=== PATIENT | male | born 1995 | race African-American/Black ===

== ENCOUNTER 2019-09-01 14:41 | Emergency (ER) | payer MEDICAID, OTHER ==
[~2019-09-01] VITALS: Ht 172.7 cm; Wt 67.1 kg
[2019-09-01] MEDS ORDERED: IV NORMAL SALINE 1000 ML BAG IV ONE (15:30)
--- NOTE | 2019-09-01 15:39 | NUR ---
Patient is resting comfortably in bed with eyes closed, NAD noted.
[2019-09-01 15:43] LABS: BASOPHILS # (AUTO) 0.1 K/uL (0.0-8.0); BASOPHILS % (AUTO) 0.8 % (0.0-2.0); EOSINOPHILS # (AUTO) 0.1 K/uL (0.0-0.7); EOSINOPHILS % (AUTO) 1.7 % (0.0-7.0); HEMATOCRIT 43.7 % (36.7-47.1); HEMOGLOBIN 14.7 g/dL (12.5-16.3); LYMPHOCYTES % (AUTO) 38.5 % (20.5-51.5); MEAN CORPUSCULAR HEMOGLOBIN 31.2 uug (23.8-33.4); MEAN CORPUSCULAR HGB CONC 34 g/dL (32.5-36.3); MEAN CORPUSCULAR VOLUME 92.4 fL (73.0-96.2); MONOCYTES # (AUTO) 0.9 K/uL (2.0-10.0); MONOCYTES % (AUTO) 11.6 % (0.0-11.0); NEUTROPHILS # (AUTO) 3.7 K/uL (1.8-8.9); NEUTROPHILS % (AUTO) 47.4 % (38.5-71.5); PLATELET COUNT (AUTO) 235 K/uL (152-348); RED BLOOD CELL COUNT(AUTO) 4.73 MIL/uL (4.06-5.63); WHITE BLOOD COUNT (AUTO) 7.8 K/uL (3.6-10.2)
[2019-09-01 15:59] LABS: BILIRUBIN,DIRECT 0.2 mg/dL (0.0-0.2); BILIRUBIN,TOTAL 0.6 mg/dL (0.2-1.0); CREATININE 1.1 mg/dL (0.6-1.3); POTASSIUM 3.6 mmol/L (3.5-5.1); TOTAL PROTEIN, SERUM 7.4 g/dL (6.4-8.2)
[2019-09-01 16:23] LABS: ETHANOL < 3 MG/DL (0-0)
--- NOTE | 2019-09-01 16:28 | NUR ---
Pt is more awake, able to drink. no c/o pain.
--- NOTE | 2019-09-01 17:05 | NUR ---
IV removed. Catheter intact and site benign. Pressure and 4x4 gauze applied to site. No bleeding noted.
[2019-09-01 17:08] VITALS: BP 103/60
--- NOTE | 2019-09-01 17:09 | NUR ---
Patient discharged to home in stable conditon. Written and verbal after care instructions given. Patient verbalizes understanding of instructions.
== END 2019-09-01 17:09 | disposition home or self-care (01) ==
LOC: ER 14:41 → EDBD 14:41 → ER 17:09
DX: R55 Syncope and collapse (principal); T42.4X5A Adverse effect of benzodiazepines, initial encounter; F12.10 Cannabis abuse, uncomplicated; Y92.89 Other specified places as the place of occurrence of the external cause
CPT/HCPCS: 36415; 71045; 80048; 80076; 84484; 85025; 93005; 99284; G0480; 70030-TC; A4663